=== PATIENT | male | born 1985 | race Caucasian/White ===

== ENCOUNTER 2024-02-29 12:21 | Emergency (ER) | payer OTHER, SELFPAY ==
[~2024-02-29] VITALS: Ht 170.2 cm; Wt 73.0 kg
[2024-02-29 12:23] VITALS: TEMP 98.7; O2SAT 97
[2024-02-29] MEDS: ACETAMINOPHEN 325MG TABLET PO ONE (17:28)
[2024-02-29 17:30] VITALS: BP 148/98; PULSE 82; RESP 14
== END 2024-02-29 17:31 | disposition home or self-care (01) ==
LOC: ER 13:04
DX: M79.642 Pain in left hand (principal); M25.532 Pain in left wrist
CPT/HCPCS: 73110; 73130; 99284